=== PATIENT | male | born 1955 | race Caucasian/White ===

== ENCOUNTER 2020-11-01 12:39 | Day surgery (SDC) | payer MEDICARE, OTHER, SELFPAY ==
--- NOTE | 2020-10-31 12:03 | P.CONAN_ITS ---
Documented by User: Christiane Carlos 10/31/20 12:06 HPI - Anesthesia Eval Consult details Narrative: 65yo M for Colonoscopy [facility] Past Medical History Medical History (Updated 10/31/20 @ 12:05 by Christiane Carlos) Chronic pancreatitis Pancreatic cyst Pancreatic stones Surgical History Surgical History (Updated 10/31/20 @ 12:05 by Christiane Carlos) H/O shoulder surgery Social History Social History (Updated 10/31/20 @ 12:06 by Christiane Carlos) Smoking Status: Current every day smoker Packs Per Day: 1 Years Smoked: 51 Smoked in Last 30 Days: Yes Use of substances other than those prescribed or required for medical reasons: No Advance Directives: No Advance Directives Information Provided: No Advance Directives on File: No Meds Allergies Allergy/AdvReac Type Severity Reaction Status Date / Time amoxicillin Allergy Unknown Unknown Verified 10/31/20 12:08 ciprofloxacin [From Cipro] Allergy Unknown Unknown Verified 10/31/20 12:08 clindamycin Allergy Unknown Unknown Verified 10/31/20 12:08 erythromycin base Allergy Unknown Unknown Verified 10/31/20 12:08 Home Medications Medication Instructions Recorded Confirmed Type aspirin 81 mg PO DAILY 11/01/20 11/01/20 History ibuprofen 200 mg PO Q6H PRN 11/01/20 11/01/20 History [id number] [Pancrease cap PO 11/01/20 History MT-10] Exam Exam Date and Time: October 31, 2020 120 Assessment and Plan Assessment Anesthesia Assessment: Chart Reviewed Documented by User: Carlene Acosta 11/01/20 13:54 [facility] Past Medical History Medical History (Updated 10/31/20 @ 12:05 by Christiane Carlos) Chronic pancreatitis Pancreatic cyst Pancreatic stones Surgical History Surgical History (Updated 10/31/20 @ 12:05 by Christiane Carlos) H/O shoulder surgery Social History Social History (Updated 10/31/20 @ 12:06 by Christiane Carlos) Smoking Status: Current every day smoker Packs Per Day: 1 Years Smoked: 51 Smoked in Last 30 Days: Yes Use of substances other than those prescribed or required for medical reasons: No Advance Directives: No Advance Directives Information Provided: No Advance Directives on File: No Meds Allergies Allergy/AdvReac Type Severity Reaction Status Date / Time amoxicillin Allergy Unknown Unknown Verified 10/31/20 12:08 ciprofloxacin [From Cipro] Allergy Unknown Unknown Verified 10/31/20 12:08 clindamycin Allergy Unknown Unknown Verified 10/31/20 12:08 erythromycin base Allergy Unknown Unknown Verified 10/31/20 12:08 Home Medications Medication Instructions Recorded Confirmed Type aspirin 81 mg PO DAILY 11/01/20 11/01/20 History ibuprofen 200 mg PO Q6H PRN 11/01/20 11/01/20 History [id number] [Pancrease cap PO 11/01/20 History MT-10] Exam Airway Mallampati Class: II (Missing multiple teeth) TM Dist: >3cm Neck ROM: Full Heart: RRR Lungs: CTA BL Assessment and Plan Assessment Anesthesia Assessment: Anesthesia Plan Discussed and Chart Reviewed Final Anesthetic Review NPO: Yes ASA Class: II Final Preanesthetic Review: No Changes in Pt Med Stat and Consent Obtain ed/Reviewed Patient Risk: Intermediate Procedure Risk: Intermediate Anesthetic Plan Anesthetic Plan: MAC: and Regional Block
[2020-11-01 10:33] VITALS: BMI 25.5
[2020-11-01 13:31] VITALS: BP 160/86; PULSE 60; RESP 16; TEMP 37.1; O2SAT 98
[2020-11-01] MEDS: Lactated Ringers 1,000 ML 100 ML IVCONT (14:17)
--- NOTE | 2020-11-01 14:29 | MHC.SHP ---
Pre-Procedural Eval Section A The patient is an INPATIENT: No Changes since office visit: No Cold of Flu in the past 2 weeks, No New Medical Problems, No Changes in Medication and No Patient answered all questions The History & Physical has been completed within 30 days and I have reviewed it.: Yes Section B Chief Complaint: Rectal Bleeding Allergies: Allergies Allergy/AdvReac Type Severity Reaction Status Date / Time amoxicillin Allergy Unknown Unknown Verified 10/31/20 12:08 ciprofloxacin [From Cipro] Allergy Unknown Unknown Verified 10/31/20 12:08 clindamycin Allergy Unknown Unknown Verified 10/31/20 12:08 erythromycin base Allergy Unknown Unknown Verified 10/31/20 12:08 Plan I have reviewed the history and physical and performed a pertinent physical examination on my patient. No changes have occurred unless specified.
--- NOTE | 2020-11-01 14:54 | PM.OP ---
Brief Operative Note Date of Service: 11/01/20 Pre-op diagnosis: rectal bleeding Post-op diagnosis: same Procedure: colonoscopy Surgeon: Shaji Bradley Anesthesia: MAC Estimated blood loss (mL): 5 Pathology: other (sigmoid biopsies) Condition: stable Disposition: PACU
[2020-11-01 14:55] VITALS: BP 120/69; PULSE 59; RESP 12; TEMP 36.3; O2SAT 97
[2020-11-01 15:07] VITALS: BP 160/72; PULSE 50; RESP 16; TEMP 36.3; O2SAT 98
--- NOTE | 2020-11-01 15:12 | HO.POSTANES ---
Post Anesthesia Evaluation Post Anesthesia Evaluation Vital Signs: Vital Signs Temp Pulse Resp BP Pulse Ox 11/01/20 14:55 97.3 F 59 12 120/69 97 11/01/20 13:31 98.8 F 60 16 160/86 H 98 Anesthesia: Monitored Mental Status: Awake Pain Control: Satisfactory Nausea/Vomiting: None Hydration: Adequate Anesthesia-Related Issues: No Anes. Related Issues
--- NOTE | 2020-11-01 17:41 | OP_ITS ---
SURGEON: Shaji Bradley MD INDICATIONS: Rectal bleeding. PREOPERATIVE DIAGNOSIS: POSTOPERATIVE DIAGNOSIS: PROCEDURE PERFORMED: Colonoscopy to the terminal ileum with biopsy. ESTIMATED BLOOD LOSS: COMPLICATIONS: ANESTHESIA: ASSISTANTS: SPECIMENS: MEDICATIONS: Monitored anesthesia care. DESCRIPTION OF PROCEDURE: History and physical performed. The risks and benefits of the procedure were explained to the patient. Informed consent was obtained. The patient was placed in the left lateral decubitus position. A digital rectal exam was performed and revealed decreased tone to the rectal sphincter. The Olympus pediatric video colonoscope was introduced into the rectum and advanced to the cecum without difficulty. The cecum was identified by transillumination, palpation, and identification of ileocecal valve. Examination was performed and the scope was removed. He tolerated the procedure well and was taken to recovery area in stable condition. FINDINGS: The terminal ileum was normal. The visualized colonic mucosa was within normal limits without evidence of masses or ulcers. There were a large amount of liquid stool present, limiting sensitivity examination for detection of small polyps. No polyps were identified. This was washed and suctioned as best possible. Random sigmoid biopsies were obtained to rule out microscopic colitis. Retroflexed examination showed some internal hemorrhoids. IMPRESSION: Normal colonoscopy. RECOMMENDATIONS: 1. Follow up the biopsy results. 2. Repeat colonoscopy is recommended in 10 years for average risk individuals. MD BETHANY Flores/NEGRITO / [id number]
== END 2020-11-01 15:28 | disposition home or self-care (01) ==
PROVIDERS: PCP Internal Medicine; Visit Provider Internal Medicine Gastroenterology
PROC: 0DJD8ZZ Inspection of Lower Intestinal Tract, Via Natural or Artificial Opening Endoscopic (ICD-10-PCS; CPT 45378; principal; 2020-11-01 14:40)
DX: K62.5 Hemorrhage of anus and rectum (principal); R19.4 Change in bowel habit; K64.8 Other hemorrhoids; K86.1 Other chronic pancreatitis; K86.2 Cyst of pancreas; K86.89 Other specified diseases of pancreas; I71.4 Abdominal aortic aneurysm, without rupture; F17.210 Nicotine dependence, cigarettes, uncomplicated; Z79.1 Long term (current) use of non-steroidal anti-inflammatories (NSAID); Z79.82 Long term (current) use of aspirin; Z79.899 Other long term (current) drug therapy; Z88.0 Allergy status to penicillin; Z88.1 Allergy status to other antibiotic agents
CPT/HCPCS: 45380; 88305